=== PATIENT | female | born 1935 | race Caucasian/White ===

== ENCOUNTER 2022-08-02 15:26 | Inpatient (IN) | payer MEDICARE, OTHER ==
[~2022-08-02] VITALS: Ht 142.2 cm; Wt 57.2 kg
[2022-08-02] MEDS ORDERED: BISA10SU11 RC (15:46)
[2022-08-02] MEDS ORDERED: OLME1TAB92 PO (15:46)
[2022-08-02] MEDS ORDERED: ATOR40TA PO (15:46)
[2022-08-02] MEDS ORDERED: SERT50TA PO (15:46)
[2022-08-02] MEDS ORDERED: PREG50CA PO (15:46)
[2022-08-02] MEDS ORDERED: NA P133E RC (15:46)
[2022-08-02] MEDS ORDERED: CYCL30DR EACHEYE (15:46)
[2022-08-02] MEDS ORDERED: ACET-868 PO (15:46)
[2022-08-02] MEDS ORDERED: OMEP20CA15 PO (15:46)
[2022-08-02] MEDS ORDERED: PIOG15TA8 PO (15:46)
[2022-08-02] MEDS ORDERED: METF-440 PO (15:46)
[2022-08-02] MEDS ORDERED: DOCU-141 PO (15:46)
[2022-08-02] MEDS ORDERED: AMLO-213 PO (15:46)
[2022-08-02] MEDS ORDERED: TAMS-12 PO (15:46)
[2022-08-02] MEDS ORDERED: MAGN400O6 PO (15:46)
[2022-08-02] MEDS ORDERED: QUET25TA PO (15:46)
[2022-08-02 16:40] LABS: BASOPHILS % (AUTO) 0.4 % (0.0-2.0); EOSINOPHILS % (AUTO) 2.1 % (0.0-6.0); HEMATOCRIT 35 % (33-45); HEMOGLOBIN 11.1 g/dL (11.5-14.8); LYMPHOCYTES # (AUTO) 1.8 K/uL (0.8-4.8); LYMPHOCYTES % (AUTO) 22.1 % (20.0-44.0); MEAN CORPUSCULAR HGB CONC 32 g/dl (31.0-36.0); MEAN CORPUSCULAR VOLUME 89 fL (82-100); MONOCYTES # (AUTO) 0.7 K/uL (0.1-1.30); MONOCYTES % (AUTO) 8.6 % (2.0-12.0); NEUTROPHILS # (AUTO) 5.5 K/uL (1.8-8.9); NEUTROPHILS % (AUTO) 66.8 % (43.0-81.0); PLATELET COUNT (AUTO) 311 K/uL (150-450); RED BLOOD CELL COUNT(AUTO) 3.91 MIL/uL (4.0-5.2); WHITE BLOOD COUNT (AUTO) 8.2 K/uL (4.3-11.0)
[2022-08-02 17:05] LABS: ALANINE AMINOTRANSFERASE 20 U/L (12-78); ALBUMIN 3.2 g/dL (3.4-5.0); ALKALINE PHOSPHATASE 88 U/L (46-116); ASPARTATE AMINOTRANSFERASE 19 U/L (15-37); BILIRUBIN,DIRECT 0.1 mg/dL (0.0-0.2); BILIRUBIN,TOTAL 0.2 mg/dL (0.2-1.0); CALCIUM, SERUM 8.9 mg/dL (8.5-10.1); CARBON DIOXIDE 27 mmol/L (21-32); CHLORIDE 106 mmol/L (98-107); CREATININE 0.9 mg/dL (0.6-1.3); GLUCOSE 134 mg/dL (74-106); POTASSIUM 3.7 mmol/L (3.5-5.1); SODIUM SERUM 140 mmol/L (136-145); TOTAL PROTEIN, SERUM 6.4 g/dL (6.4-8.2); UREA NITROGEN, BLOOD 17 mg/dL (7-18)
[2022-08-02 17:08] LABS: BILIRUBIN,URINE NEGATIVE (NEGATIVE); COLOR,URINE YELLOW (YELLOW); LEUKOCYTE ESTERASE ,URINE 1+ (NEGATIVE); NITRITE, URINE NEGATIVE (NEGATIVE); PROTEIN,URINE NEGATIVE (NEGATIVE); UGLUCOSE NEGATIVE (NEGATIVE)
[2022-08-02 17:12] LABS: ACETAMINOPHEN < 10 ug/ml (10-30); ALCOHOL, BLOOD < 3 mg/dL (0-0)
[2022-08-02 17:17] LABS: BACTERIA,URINE 1+ /HPF (None Seen); RBC,URINE 0-2 /HPF (0-2)
[2022-08-02] MEDS ORDERED: CEFTRIAXONE 1GM BAG (ER ONLY) 1 GM/50 ML PIGGYBACK IV ONE (18:00)
--- NOTE | 2022-08-02 18:09 | NUR ---
PAGED SUPERVISOR POWER REACTOR
[2022-08-02] MEDS ORDERED: LORAZEPAM INJ 2 MG/ML VIAL IM ONE (18:30)
[2022-08-02] MEDS ORDERED: HALOPERIDOL LACTATE INJ 5 MG/ML VIAL IM ONE (18:30)
[2022-08-02] MEDS ORDERED: HALOPERIDOL LACTATE INJ 5 MG/ML VIAL ONE (18:31)
[2022-08-02] MEDS ORDERED: LORAZEPAM INJ 2 MG/ML VIAL ONE (18:31)
--- NOTE | 2022-08-02 18:38 | NUR ---
RACHELLE COLLECTED AND SENT
[2022-08-02] MEDS ORDERED: CEFTRIAXONE 1GM BAG (ER ONLY) 50 ML IV ONE (19:33)
[2022-08-02] MEDS ORDERED: hydrALAZINE HCL IV 20 MG VIAL ONE (21:19)
[2022-08-02] MEDS ORDERED: hydrALAZINE HCL IV 20 MG VIAL IV PRN (21:30)
--- NOTE | 2022-08-02 22:00 | NUR ---
REPORT GIVEN TO MARCIA THOMPSON.
[2022-08-02 22:30] VITALS: BP 130/76
--- NOTE | 2022-08-02 22:30 | NUR ---
RN NOTE: ADMITTED AN 87-Y/O, FEMALE, FROM [facility]. ADMITTED ON A 5150 HOLD. PER HOLD, PT ADMITTED DUE TO PT'S REFUSING CARE, AGGRESSIVE AND PARANOID BEHAVIOR. UPON FACE TO FACE EVALUATION, PATIENT IS ALERT AND ORIENTED X1, IN PASHTO/FARSI SPEAKING, PT. IS CONFUSED, ANXIOUS AND DISORGANIZED. SKIN ASSESSMENT DONE. PT UNABLE TO SIGN ADMISSION PAPERWORK DUE TO CONFUSION. PT. REFUSED FLU/PNEUMONIA VACCINE. PT ALSO REFUSED TO COMMENT ABOUT FLU/PNA VACCINATION AND REFUSING TO GET ONE. ALL BELONGINGS WERE SCREENED FOR CONTRABAND. PATIENT'S RIGHTS WERE DISCUSSED AND BOOKLET WAS GIVEN. CONTACTED DR. SIDDIQI AND HOSPITALIST BLAYNE COLE AND INFORMED THEM OF THE ADMISSION. BED IN LOWEST POSITION, LOCKED. SAFETY PRECAUTIONS MAINTAINED. WILL CONTINUE TO MONITOR Q15 MINS FOR MOOD, SAFETY AND BEHAVIOR.
[2022-08-02] MEDS ORDERED: BLOOD SUGAR DIAGNOSTIC 1 EACH STRIP IN ONE (23:00)
[2022-08-02] MEDS ORDERED: clonazePAM 0.5 MG TABLET PO PRN (23:00)
[2022-08-02] MEDS ORDERED: ACETAMINOPHEN 325 MG TABLET PO PRN (23:00)
[2022-08-02] MEDS ORDERED: MAGNESIUM HYDROXIDE 30 ML UDC PO PRN (23:00)
[2022-08-02] MEDS ORDERED: TEMAZEPAM 7.5 MG CAPSULE PO PRN (23:00)
[2022-08-03] MEDS ORDERED: MAGNESIUM HYDROXIDE 30 ML UDC PO PRN (00:30)
[2022-08-03] MEDS ORDERED: BISACODYL SUPP (10 MG) 10 MG/SUPP.RECT SUPP.RECT RC PRN (00:30)
[2022-08-03] MEDS ORDERED: DEXTROSE 50%-WATER 50 ML DISP.SYRIN IV PRN (03:00)
--- NOTE | 2022-08-03 03:37 | NUR ---
RN note: 00:15: Patient was found on the floor in sitting position.Full body assessment done and noted skin abrasion/scratches at the middle part of her back.Patient denies complaint of pain upon assessment .Patient was helped and assisted by staff to get up and ambulated her to sit in zheng chair for further assessment. Patient was noted touching her head and staff asked her if she hit her head on the floor but did not answer the question being asked instead noted her touching the back of her head.Jacey CISNEROS was notified with an order of stat CT of the head and neuro check q2 hours. .Diamond Driller Helper MARCIA Albarran was informed of the incident.Will continue to monitor patient for safety. 03:00:Patient is still awake,denies pain .No s/s of acute distress noted.
--- NOTE | 2022-08-03 07:00 | NUR ---
RN NOTE- PT ALERT CONFUSED, IN BEATRICE CHAIR. FALL RISK. PT REPORTEDLY FELL OVER NOC. CT HEAD UNREMARKABLE. VS STABLE. MONITOR / SAFETY
--- NOTE | 2022-08-03 07:15 | NUR ---
RN NOTE- PT NETO FUNEZ. WANTS TO LEAVE HOSPITAL. IRRITATING OTHER PTS. REDIRECTED. TAKING UP MULTIPLE STAFF MEMBERS. DR TANG TO SEE PT Addendum: 08/03/22 at 1017 by CHRISTIAN SYED RN POSTED ON WRONG PT. USER ERROR
[2022-08-03] MEDS ORDERED: OMEPRAZOLE 20 MG CAPSULE.DR PO SCH (07:30)
[2022-08-03 07:35] LABS: CREATININE 0.7 mg/dL (0.6-1.3)
[2022-08-03] MEDS: BLOOD SUGAR DIAGNOSTIC 1 EACH STRIP IN SCH ×4 (07:36→21:58)
[2022-08-03 07:39] LABS: CHOLESTEROL 157 mg/dL (<200); HDL CHOLESTEROL 52 mg/dL (40-60); LDL 92 mg/dL (0-99); TRIGLYCERIDES 103 mg/dL (30-150)
[2022-08-03] MEDS: METFORMIN 500 MG TABLET PO SCH ×2 (07:48→17:03)
[2022-08-03 08:00] VITALS: BP 145/68
--- NOTE | 2022-08-03 08:00 | NUR ---
RN NOTE- PT IN CHAIR, ALLOWED BS CHECK. BS 220. PT REFUSED SSI.
[2022-08-03] MEDS: AMLODIPINE BESYLATE 10 MG TABLET PO SCH (08:09)
[2022-08-03] MEDS: CEPHALEXIN MONOHYDRATE 500 MG CAPSULE PO SCH ×2 (08:09→21:25)
[2022-08-03] MEDS: PREGABALIN 25 MG CAPSULE PO SCH ×2 (08:09→21:25)
[2022-08-03] MEDS: TAMSULOSIN 0.4 MG CAP.SR.24H PO SCH (08:09)
[2022-08-03] MEDS: PIOGLITAZONE HCL 15 MG TABLET PO SCH (08:09)
--- NOTE | 2022-08-03 10:00 | NUR ---
RN NOTE- PT DISRUPTIVE. DR TANG SAW PT. SHES REFUSING ALL MEDS EXCEPT NARCOTICS AND OPPOSITIONAL TO ALL CARE OR PLAN OF CARE. DR TANG ORDERED PT TO LEAVE SINCE SHE WANTED TO GO. HOLD NO LONGER IN PLACE. PT REFUSED TO SIGN AMA. SECURITY HAD TO BE CALLED AND SHE WAS ESCORTED OFF UNIT BY SECURITY AND STAFF Addendum: 08/03/22 at 1018 by CHRISTIAN SYED RN ABOVE POSTED ON WRONG PT. USER ERROR
[2022-08-03] MEDS: PANTOPRAZOLE 40 MG TABLET.DR PO SCH (10:22)
--- NOTE | 2022-08-03 11:17 | NUR ---
JUAN DANIEL Initial Discharge Note: Patient from [facility] [address] [place] [address] . JUAN DANIEL spoke with Brendan vazquez who stated that elopes from the facility and would need a locked facility. JUAN DANIEL will contact patient's daughter Kailee ([phone]) to discuss treatment/discharge plan. JUAN DANIEL will work with the MD, family, and treatment team to help coordinate appropraite discharge.
--- NOTE | 2022-08-03 11:18 | NUR ---
JUAN ADNIEL Clinical Note: Pt placed on a 5150 hold for GD. Per hold, pt has been aggressive at the facility. Patient from [facility] [address] [place], [place] [address]Yzzre: . JUAN DANIEL spoke with Brendan vazquez who stated that elopes from the facility and would need a locked facility. JUAN DANIEL will contact patient's daughter Kailee ([phone]) to discuss treatment/discharge plan. JUAN DANIEL will work with the MD, family, and treatment team to help coordinate appropraite discharge.
--- NOTE | 2022-08-03 11:18 | NUR ---
Treatment Plan: Pt very confused and unable to sign treatment plan.
[2022-08-03] MEDS: INSULIN REGULAR, HUMAN 100 UNIT/ML 3 ML VIAL SQ PRN ×3 (12:25→21:59)
--- NOTE | 2022-08-03 12:27 | NUR ---
RN NOTE- ATTEMPTED TO DO ACCU CHECK . PT PULLING AWAY. REFUSING. PT RECEIVED METFORMIN THIS AM. WILL MONITOR
--- NOTE | 2022-08-03 15:37 | NUR ---
JUAN DANIEL Family Contact: JUAN DANIEL contacted patient's daughter Kailee ([phone]) and discussed treatment/discharge plan. JUAN DANIEL notified the daughter that [facility] cannot accept back. JUAN DANIEL gave options [facility], [facility], and [facility]. Daughter stated that [facility] would be her option. JUAN DANIEL will send clinicals when pt is stable.
[2022-08-03 16:00] VITALS: BP 110/52
[2022-08-03 20:30] VITALS: BP 135/74
[2022-08-03] MEDS: POLYVINYL ALCOHOL 15 ML BOTTLE EACHEYE SCH (21:24)
[2022-08-03] MEDS: OLANZAPINE 2.5 MG TABLET PO SCH (21:25)
[2022-08-03] MEDS: ATORVASTATIN 40 MG TABLET PO SCH (21:26)
[2022-08-03] MEDS: LOSARTAN POTASSIUM 50 MG TABLET PO SCH (21:26)
[2022-08-03] MEDS: HYDROCHLOROTHIAZIDE 25 MG TABLET PO SCH (21:27)
[2022-08-04] MEDS: BLOOD SUGAR DIAGNOSTIC 1 EACH STRIP IN SCH ×4 (07:30→22:00)
[2022-08-04 08:00] VITALS: BP 109/54
[2022-08-04] MEDS: AMLODIPINE BESYLATE 10 MG TABLET PO SCH (09:00)
[2022-08-04] MEDS: INSULIN REGULAR, HUMAN 100 UNIT/ML 3 ML VIAL SQ PRN ×2 (09:07→13:37)
[2022-08-04] MEDS: TAMSULOSIN 0.4 MG CAP.SR.24H PO SCH (09:18)
[2022-08-04] MEDS: METFORMIN 500 MG TABLET PO SCH ×2 (09:19→18:19)
[2022-08-04] MEDS: PREGABALIN 25 MG CAPSULE PO SCH ×2 (09:20→21:43)
[2022-08-04] MEDS: PANTOPRAZOLE 40 MG TABLET.DR PO SCH (09:21)
[2022-08-04] MEDS: PIOGLITAZONE HCL 15 MG TABLET PO SCH (09:22)
[2022-08-04] MEDS: POLYVINYL ALCOHOL 15 ML BOTTLE EACHEYE SCH ×2 (09:23→21:43)
[2022-08-04] MEDS: CEPHALEXIN MONOHYDRATE 500 MG CAPSULE PO SCH ×2 (09:25→21:43)
[2022-08-04 16:00] VITALS: BP 106/69
--- NOTE | 2022-08-04 19:50 | NUR ---
Patient is stable, she is compliant with meds. No behavior issues observed except she talking to herself.
[2022-08-04 20:29] VITALS: BP 130/80
[2022-08-04] MEDS: LOSARTAN POTASSIUM 50 MG TABLET PO SCH (22:37)
[2022-08-04] MEDS: OLANZAPINE 2.5 MG TABLET PO SCH (22:37)
[2022-08-04] MEDS: ATORVASTATIN 40 MG TABLET PO SCH (22:37)
[2022-08-04] MEDS: HYDROCHLOROTHIAZIDE 25 MG TABLET PO SCH (22:37)
--- NOTE | 2022-08-04 23:06 | NUR ---
Blodd sugar check 117
--- NOTE | 2022-08-05 07:05 | NUR ---
RN OPENING NOTE PATIENT 87 YEARS OLD FEMALE, NON ZAMBIAN SPEAKER, ALERT, SITTING ON A BED AT HER ROOM, TALKING TO HERSELF, SEEMS VERY ACTIVE AND DISORIENTED. WILL CONTINUE TO MONITOR, IMPLEMENT SAFETY PRECAUTIONS.
[2022-08-05] MEDS: BLOOD SUGAR DIAGNOSTIC 1 EACH STRIP IN SCH ×4 (07:46→22:38)
[2022-08-05 08:00] VITALS: BP 124/70
[2022-08-05] MEDS: PANTOPRAZOLE 40 MG TABLET.DR PO SCH (08:20)
[2022-08-05] MEDS: POLYVINYL ALCOHOL 15 ML BOTTLE EACHEYE SCH ×2 (08:20→20:11)
[2022-08-05] MEDS: METFORMIN 500 MG TABLET PO SCH ×2 (08:20→18:16)
[2022-08-05] MEDS: AMLODIPINE BESYLATE 10 MG TABLET PO SCH (09:00)
[2022-08-05] MEDS: PREGABALIN 25 MG CAPSULE PO SCH ×2 (09:34→20:09)
[2022-08-05] MEDS: CEPHALEXIN MONOHYDRATE 500 MG CAPSULE PO SCH ×2 (09:35→20:10)
[2022-08-05] MEDS: PIOGLITAZONE HCL 15 MG TABLET PO SCH (09:35)
[2022-08-05] MEDS: TAMSULOSIN 0.4 MG CAP.SR.24H PO SCH (09:35)
[2022-08-05 10:00] VITALS: BP 124/70
--- NOTE | 2022-08-05 10:15 | NUR ---
AFTER PATIENT HAD MORNING PO MEDS, FIND PILLS SPITTED ON THE FLOOR 20 MIN LATER.
--- NOTE | 2022-08-05 10:38 | NUR ---
SNF Referral: JUAN DANIEL sent clinicals to Claudio vazquez from [facility] ([phone]) for placement. JUAN DANIEL sent H & P, progress notes, and medication list.
--- NOTE | 2022-08-05 12:30 | NUR ---
ATTEMPTED TO DO ACCU CHECK . PT PULLING AWAY, KICKING BS MONITOR, REFUSING. WILL MONITOR.
--- NOTE | 2022-08-05 15:40 | NUR ---
SNF Contact: SW spoke with Claudio vazquez from [facility] ([phone]) who stated pt is accepted.
[2022-08-05 16:00] VITALS: BP 100/63
--- NOTE | 2022-08-05 18:27 | NUR ---
RN CLOSING NOTE PATIENT REFUSED TO GET ACCU CHECK AT 17:30. MEDS BEEN TAKEN CRUSHED IN APPLE SAUCE. OTHERWISE STAYED CALM, HAD FEW FAMILY VISITORS THROUGH THE DAY. PATIENT ALERT, SAFETY MEASURES IMPLEMENTED. WILL ENDORSE TO THE RECORD PRESSMAN NURSE FOR SILVIA.
[2022-08-05] MEDS: MAG HYDROX/AL HYDROX/SIMETH 30 ML UDC PO PRN (19:38)
--- NOTE | 2022-08-05 19:39 | NUR ---
RN NOTES: upon endorsement noticed she is spitting her saliva mixed with food particles, she has lots of visitors coming around to visit her, she verbalized in her language she has pain, while pointing in her stomach, prn Maalox given.
--- NOTE | 2022-08-05 19:54 | NUR ---
RN NOTES: SHE IS STILL SPITTING HER SALIVA WITH FOOD PARTICLES, SLIGHTLY RELIEVED WITH THE HELP OF MAALOX, KEPT ON CLOSE WATCH.
--- NOTE | 2022-08-05 19:58 | NUR ---
RN NOTES: RN NOTICED SHE IS PUTTING HER FINGER INSIDE HER MOUTH AND TRYING TO INDUCE HER THROAT TO SPIT OUT HER SALIVA. RN INSTRUCT HER NOT TO DO IT, SHE AGREE, KEPT ON CLOSE WATCH.
[2022-08-05 20:00] VITALS: BP 104/64
--- NOTE | 2022-08-05 20:19 | NUR ---
RN NOTES: UNABLE TO SCAN HIS ANTIBIOTIC MEDS, MANUALLY ENTERED BAR CODE.
--- NOTE | 2022-08-05 20:30 | NUR ---
RN NOTES: SHE TOOK HER ANTIBIOTIC AND LYRICA, NO RESISTANCE, MED COMPLIANT
[2022-08-05] MEDS: LOSARTAN POTASSIUM 50 MG TABLET PO SCH (21:41)
[2022-08-05] MEDS: HYDROCHLOROTHIAZIDE 25 MG TABLET PO SCH (21:42)
[2022-08-05] MEDS: OLANZAPINE 2.5 MG TABLET PO SCH (21:43)
[2022-08-05] MEDS: ATORVASTATIN 40 MG TABLET PO SCH (21:43)
[2022-08-05 22:00] VITALS: BP 104/64
--- NOTE | 2022-08-05 22:12 | NUR ---
RN NOTES: SHE EAT EGG SANDWICH AND DRINK JUICE, AFTER SHE EAT SHE IS SPITTING SOME OF THE FOOD.
--- NOTE | 2022-08-05 22:13 | NUR ---
RN NOTES: REFUSED FOR BLOOD SUGAR CHECK NOW, WILL TRY AGAIN LATER, SHE EAT THE PUDDING.
--- NOTE | 2022-08-05 22:39 | NUR ---
RN NOTES: AGREE FOR BLOOD SUGAR CHECK-128, NO INSULIN PER SCALE, RN SAW HER AGAIN PURGING HIMSELF TO VOMIT, SHE IS PUTTING HER MIDDLE FINGER IN HER THROAT, CN MADE AWARE, WILL MONITOR AND REPORT THIS BEHAVIOR IN THE MORNING.
--- NOTE | 2022-08-05 23:30 | NUR ---
RN NOTES: AROUND 2300 ASSISTED BACK TO BED BY 2 MANUFACTURING BAKER, SHE FALL ASLEEP. SAFETY PRECAUTION OBSERVED.
[2022-08-06] MEDS: BLOOD SUGAR DIAGNOSTIC 1 EACH STRIP IN SCH ×4 (07:40→22:30)
[2022-08-06 08:00] VITALS: BP 118/66
[2022-08-06] MEDS: METFORMIN 500 MG TABLET PO SCH ×2 (08:02→17:32)
[2022-08-06] MEDS: PANTOPRAZOLE 40 MG TABLET.DR PO SCH (08:02)
[2022-08-06] MEDS: TAMSULOSIN 0.4 MG CAP.SR.24H PO SCH (08:33)
[2022-08-06] MEDS: AMLODIPINE BESYLATE 10 MG TABLET PO SCH (08:33)
[2022-08-06] MEDS: PIOGLITAZONE HCL 15 MG TABLET PO SCH (08:33)
[2022-08-06] MEDS: PREGABALIN 25 MG CAPSULE PO SCH ×2 (08:33→22:00)
[2022-08-06] MEDS: CEPHALEXIN MONOHYDRATE 500 MG CAPSULE PO SCH ×2 (08:37→22:00)
[2022-08-06] MEDS: POLYVINYL ALCOHOL 15 ML BOTTLE EACHEYE SCH ×2 (09:52→22:11)
--- NOTE | 2022-08-06 10:28 | NUR ---
Court Notification: JUAN DANIEL contacted pt's daughter Kailee ([phone]) and left a voicemail of [phone] hearing.
--- NOTE | 2022-08-06 10:29 | NUR ---
Court Hearing: Patient's court hearing for 9960 was today and it was upheld for GD.
[2022-08-06 16:00] VITALS: BP 112/73
--- NOTE | 2022-08-06 18:31 | NUR ---
RN-NOTES PATIENT VISIBLE IN THE UNIT ATTENDED GROUPS ,A/OX1, NO ACUTE DISTRESS NOTED. COMPLIANT WITH MEDICATIONS.PATIENT HAD A SHOWER THIS SHIFT.AMBULATORY WITH ONE STAFF ASSIST.NEEDS MODERATE ASSIST WITH ADL'S. ALL NEEDS ATTENDED AND ANTICIPATED. WILL CONT.MONITORING FOR SAFETY AND BEHAVIOR.WILL ENDORSE TO INCOMING NURSE FOR THE CONTINUITY OF CARE.
[2022-08-06 20:00] VITALS: BP 110/68
[2022-08-06] MEDS: OLANZAPINE 2.5 MG TABLET PO SCH (22:01)
[2022-08-06] MEDS: HYDROCHLOROTHIAZIDE 25 MG TABLET PO SCH (22:02)
[2022-08-06] MEDS: LOSARTAN POTASSIUM 50 MG TABLET PO SCH (22:03)
[2022-08-06] MEDS: ATORVASTATIN 40 MG TABLET PO SCH (22:03)
[2022-08-06] MEDS: INSULIN REGULAR, HUMAN 100 UNIT/ML 3 ML VIAL SQ PRN (22:31)
--- NOTE | 2022-08-06 23:00 | NUR ---
[facility] PHYSICIAN NOTES: BS 139. PATIENT REFUSED 2 UNITS OF INSULIN ORDERED. OFFERED X3. EXPLAINED THE RISKS AND BENEFITS. PATIENT STILL REFUSED.
--- NOTE | 2022-08-07 07:04 | NUR ---
ENAMEL MACHINE OPERATOR NOTES: PATIENT AWAKE, SITTING IN CHAIR IN HALLWAY. AMBULATORY. NO ACUTE DISTRESS NOTED. ALL NEEDS ANTICIPATED AND ATTENDED. MONITORED FOR SAFETY AND BEHAVIOR.
[2022-08-07] MEDS: BLOOD SUGAR DIAGNOSTIC 1 EACH STRIP IN SCH ×4 (07:36→22:37)
[2022-08-07] MEDS: PANTOPRAZOLE 40 MG TABLET.DR PO SCH (07:40)
[2022-08-07] MEDS: METFORMIN 500 MG TABLET PO SCH ×2 (07:40→17:09)
[2022-08-07 08:00] VITALS: BP 118/66
[2022-08-07] MEDS: AMLODIPINE BESYLATE 10 MG TABLET PO SCH (08:59)
[2022-08-07] MEDS: TAMSULOSIN 0.4 MG CAP.SR.24H PO SCH ×2 (08:59→09:00)
[2022-08-07] MEDS: CEPHALEXIN MONOHYDRATE 500 MG CAPSULE PO SCH ×2 (08:59→21:40)
[2022-08-07] MEDS: PREGABALIN 25 MG CAPSULE PO SCH ×2 (08:59→21:39)
[2022-08-07] MEDS: POLYVINYL ALCOHOL 15 ML BOTTLE EACHEYE SCH ×2 (08:59→21:39)
[2022-08-07] MEDS: PIOGLITAZONE HCL 15 MG TABLET PO SCH (08:59)
[2022-08-07 16:00] VITALS: BP 108/52
[2022-08-07] MEDS ORDERED: ONDANSETRON HCL 4 MG/5 ML SOLUTION PO PRN (16:30)
[2022-08-07] MEDS: INSULIN REGULAR, HUMAN 100 UNIT/ML 3 ML VIAL SQ PRN ×3 (17:20→22:50)
[2022-08-07] MEDS ORDERED: ONDANSETRON 4 MG TAB.RAPDIS PO PRN (17:30)
--- NOTE | 2022-08-07 18:57 | NUR ---
RN NOTE Patient in bed, resting. Patient is alert and ambulatory, able to make needs known. Stable on room air. No SOB or s/s of distress noted. Patient kept going back and forth to his room and dining area. Patient had a vomiting episode x 1 this morning after breakfast, no other vomiting after that. BLAYNE Thompson ordered zofran PRN. No Zofran given during AM shift. Cooperative and med compliant. Will endorse to fast food shift supervisor nurse for SILVIA.
[2022-08-07 20:00] VITALS: BP 127/58
[2022-08-07] MEDS: HYDROCHLOROTHIAZIDE 25 MG TABLET PO SCH (21:38)
[2022-08-07] MEDS: ATORVASTATIN 40 MG TABLET PO SCH (21:39)
[2022-08-07] MEDS: OLANZAPINE 2.5 MG TABLET PO SCH (21:39)
[2022-08-07] MEDS: LOSARTAN POTASSIUM 50 MG TABLET PO SCH (21:39)
--- NOTE | 2022-08-07 22:35 | NUR ---
RN NOTE BS 163. PT REFUSED INSULIN COVERAGE OF 3 UNITS. EXPLAINED RISK/BENEFITS BUT STILL REFUSED.
--- NOTE | 2022-08-08 06:39 | NUR ---
RN NOTE PT AGITATED AT START OF SHIFT. SAT IN GERICHAIR. CALMED DOWN AFTER BEING PROVIDED WITH SNACKS AND MEDICATIONS. SLEEPING IN BED AT THIS TIME. ABLE TO MAKE NEEDS KNOWN. STABLE ON RA. NO SOB OR S/S OF DISTRESS NOTED. PACING IN HER ROOM. COMPLIANT WITH MEDS WHEN CRUSHED AND WITH APPLE SAUCE. REFUSED INSULIN COVERAGE. WILL ENDORSE SILVIA TO DAY SHIFT NURSE.
--- NOTE | 2022-08-08 07:50 | NUR ---
RN NOTE Patient awake in bed, a/ox1, with episode of confusion. alert and ambulatory, able to make needs known. Stable on room air. No SOB or s/s of distress noted. All safety precautions implemented. Will continue to monitor.
[2022-08-08] MEDS: BLOOD SUGAR DIAGNOSTIC 1 EACH STRIP IN SCH ×4 (07:56→22:15)
[2022-08-08] MEDS: INSULIN REGULAR, HUMAN 100 UNIT/ML 3 ML VIAL SQ PRN ×2 (07:57→11:30)
[2022-08-08 08:00] VITALS: BP 106/56
[2022-08-08] MEDS: PANTOPRAZOLE 40 MG TABLET.DR PO SCH (08:29)
[2022-08-08] MEDS: POLYVINYL ALCOHOL 15 ML BOTTLE EACHEYE SCH ×2 (08:29→20:47)
[2022-08-08] MEDS: METFORMIN 500 MG TABLET PO SCH ×2 (08:29→17:03)
[2022-08-08] MEDS: PIOGLITAZONE HCL 15 MG TABLET PO SCH (08:30)
[2022-08-08] MEDS: CEPHALEXIN MONOHYDRATE 500 MG CAPSULE PO SCH ×2 (08:30→20:40)
[2022-08-08] MEDS: PREGABALIN 25 MG CAPSULE PO SCH ×2 (08:30→20:40)
[2022-08-08] MEDS: TAMSULOSIN 0.4 MG CAP.SR.24H PO SCH (08:30)
[2022-08-08] MEDS: AMLODIPINE BESYLATE 10 MG TABLET PO SCH (08:31)
--- NOTE | 2022-08-08 12:30 | NUR ---
GPS RN NOTES PATIENT BS WAS 83, OFFERED ORANGE JUICE. TO RECHECKED AGAIN AFTER AN HOUR, HOWEVER PATIENT WAS SLEEPING IN BED. PATIENT HAD HER LUNCH BEFORE PATIENT WAS SEEN SLEEPING. TO MONITOR.
[2022-08-08 16:00] VITALS: BP 123/59
--- NOTE | 2022-08-08 18:45 | NUR ---
RN NOTES Patient in bed, resting. Patient is alert and ambulatory, able to make needs known. Stable on room air. No SOB or s/s of distress noted. Cooperative and med compliant. Patient was visited by Son in the evening and patient was seen crying and very emotional, kept patient comfortable. Will endorse to assistant casino shift manager nurse for SILVIA.
--- NOTE | 2022-08-08 20:00 | NUR ---
TOWER EXCAVATOR OPERATOR NOTE Patient awake in bed, a/ox1, confused, disorganized, able to make needs known. No SOB or s/s of distress noted. All safety precautions implemented. Will continue to monitor.
[2022-08-08 20:24] VITALS: BP 113/72
[2022-08-08] MEDS: ATORVASTATIN 40 MG TABLET PO SCH (21:50)
[2022-08-08] MEDS: HYDROCHLOROTHIAZIDE 25 MG TABLET PO SCH (21:51)
[2022-08-08] MEDS: OLANZAPINE 2.5 MG TABLET PO SCH (21:51)
[2022-08-08] MEDS: LOSARTAN POTASSIUM 50 MG TABLET PO SCH (21:54)
[2022-08-09] MEDS: BLOOD SUGAR DIAGNOSTIC 1 EACH STRIP IN SCH ×4 (07:44→21:38)
[2022-08-09] MEDS: INSULIN REGULAR, HUMAN 100 UNIT/ML 3 ML VIAL SQ PRN (07:45)
[2022-08-09] MEDS: PANTOPRAZOLE 40 MG TABLET.DR PO SCH (07:57)
[2022-08-09] MEDS: METFORMIN 500 MG TABLET PO SCH ×2 (07:57→17:00)
[2022-08-09 08:00] VITALS: BP 116/50
[2022-08-09] MEDS: PREGABALIN 25 MG CAPSULE PO SCH ×2 (08:19→21:31)
[2022-08-09] MEDS: AMLODIPINE BESYLATE 10 MG TABLET PO SCH (08:19)
[2022-08-09] MEDS: CEPHALEXIN MONOHYDRATE 500 MG CAPSULE PO SCH ×2 (08:19→21:35)
[2022-08-09] MEDS: TAMSULOSIN 0.4 MG CAP.SR.24H PO SCH (08:19)
[2022-08-09] MEDS: PIOGLITAZONE HCL 15 MG TABLET PO SCH (08:20)
[2022-08-09] MEDS: POLYVINYL ALCOHOL 15 ML BOTTLE EACHEYE SCH ×2 (08:30→21:41)
--- NOTE | 2022-08-09 10:57 | NUR ---
JUAN DANIEL Family Contact: SW contacted patient's daughter Kailee ([phone]) and she is agreeable of pt going to [facility].
[2022-08-09 16:00] VITALS: BP 105/62
[2022-08-09] MEDS: MAG HYDROX/AL HYDROX/SIMETH 30 ML UDC PO PRN (18:18)
--- NOTE | 2022-08-09 18:18 | NUR ---
pt c/o indigestion medicated with Maalox
--- NOTE | 2022-08-09 19:55 | NUR ---
CONSTIPATION Patient in bed, daughter at bedside. Patient no BM in the last 3 days, daughter Kailee assist with Georgian speaking translation. Given Dulcolax supp to patient as per daughter Kailee request.
[2022-08-09 20:22] VITALS: BP 121/55
[2022-08-09] MEDS: LOSARTAN POTASSIUM 50 MG TABLET PO SCH (21:32)
[2022-08-09] MEDS: ATORVASTATIN 40 MG TABLET PO SCH (21:32)
[2022-08-09] MEDS: HYDROCHLOROTHIAZIDE 25 MG TABLET PO SCH (21:33)
[2022-08-09] MEDS: OLANZAPINE 2.5 MG TABLET PO SCH (21:33)
--- NOTE | 2022-08-10 06:26 | NUR ---
END OF SHIFT NOTES Patient in bed sleeping arouses easily. Hours of sleep 7. Ambulated to the bathroom, continent, reports no BM yet after Dulcolax suppository, denies abdomen pain. Plan for continue inpatient [facility] hospitalization, Behavior management per Psychiatry. Will endorse to oncoming RN.
[2022-08-10] MEDS: BLOOD SUGAR DIAGNOSTIC 1 EACH STRIP IN SCH ×4 (07:56→21:06)
[2022-08-10] MEDS: PANTOPRAZOLE 40 MG TABLET.DR PO SCH (07:57)
[2022-08-10] MEDS: METFORMIN 500 MG TABLET PO SCH ×2 (07:57→17:05)
[2022-08-10 08:00] VITALS: BP 116/58
[2022-08-10] MEDS: PREGABALIN 25 MG CAPSULE PO SCH ×2 (08:15→20:15)
[2022-08-10] MEDS: PIOGLITAZONE HCL 15 MG TABLET PO SCH (08:15)
[2022-08-10] MEDS: AMLODIPINE BESYLATE 10 MG TABLET PO SCH (08:16)
[2022-08-10] MEDS: TAMSULOSIN 0.4 MG CAP.SR.24H PO SCH (08:16)
[2022-08-10] MEDS: CEPHALEXIN MONOHYDRATE 500 MG CAPSULE PO SCH ×2 (08:17→20:16)
[2022-08-10] MEDS: POLYVINYL ALCOHOL 15 ML BOTTLE EACHEYE SCH ×2 (08:18→20:15)
[2022-08-10 16:22] VITALS: BP 104/59
--- NOTE | 2022-08-10 19:30 | NUR ---
RN NOTES RECEIVED PATIENT IN BED AWAKE. A/O TIMES 2. HARD OF HEARING. HEARING AIDS BED SIDE. ABLE TO MAKE NEEDS KNOWN. FRENCH SPEAKER. NO PAIN NOTED. NO SOB NOTED. NO DISTRESS NOTED. COMPLIANT AND FOLLOWING THE INSTRUCTIONS. ALL NEEDS ATTENDED. ALL SAFETY MEASURES IN PLACE. BED LOCKED IN THE LOWEST POSITION. TABLE CLOSE TO THE PATIENT. BED ALARM ON. SIDE RAILS UP TIMES 2. REMINDED THE PATIENT TO ASK FOR ANY HELP , VERBALIZED UNDERSTANDING. WILL CONTINUE TO MONITOR CLOSELY.
[2022-08-10 20:41] VITALS: BP 113/62
[2022-08-10] MEDS: OLANZAPINE 2.5 MG TABLET PO SCH (21:07)
[2022-08-10] MEDS: ATORVASTATIN 40 MG TABLET PO SCH (21:07)
[2022-08-10] MEDS: HYDROCHLOROTHIAZIDE 25 MG TABLET PO SCH (21:07)
[2022-08-10] MEDS: LOSARTAN POTASSIUM 50 MG TABLET PO SCH (21:08)
[2022-08-11] MEDS: BLOOD SUGAR DIAGNOSTIC 1 EACH STRIP IN SCH ×4 (05:58→22:00)
--- NOTE | 2022-08-11 06:39 | NUR ---
RN CLOSING NOTES PATIENT IN BED AWAKE. A/O TIMES 2. HARD OF HEARING. HEARING AIDS BED SIDE. ABLE TO MAKE NEEDS KNOWN. KENYAN SPEAKER. NO PAIN NOTED. NO SOB NOTED. NO DISTRESS NOTED. COMPLIANT AND FOLLOWING THE INSTRUCTIONS. ALL NEEDS ATTENDED. ALL DUE MEDS GIVEN. BLOOD SUGAR FOR 729 WAS 75. ORANGE JUICE GIVEN.ALL SAFETY MEASURES IN PLACE. BED LOCKED IN THE LOWEST POSITION. TABLE CLOSE TO THE PATIENT. BED ALARM ON. SIDE RAILS UP TIMES 2. REMINDED THE PATIENT TO ASK FOR ANY HELP , VERBALIZED UNDERSTANDING. WILL ENDORSE FOR SILVIA.
[2022-08-11 08:00] VITALS: BP 105/54
[2022-08-11] MEDS: PANTOPRAZOLE 40 MG TABLET.DR PO SCH (08:09)
[2022-08-11] MEDS: METFORMIN 500 MG TABLET PO SCH ×2 (08:10→17:09)
[2022-08-11] MEDS: TAMSULOSIN 0.4 MG CAP.SR.24H PO SCH (08:36)
[2022-08-11] MEDS: AMLODIPINE BESYLATE 10 MG TABLET PO SCH (08:38)
[2022-08-11] MEDS: CEPHALEXIN MONOHYDRATE 500 MG CAPSULE PO SCH ×2 (08:39→21:39)
[2022-08-11] MEDS: PREGABALIN 25 MG CAPSULE PO SCH ×2 (08:39→21:37)
[2022-08-11] MEDS: PIOGLITAZONE HCL 15 MG TABLET PO SCH (08:39)
--- NOTE | 2022-08-11 08:40 | NUR ---
RN Notes : RECEIVED PATIENT ASLEEP IN BED, BED LOW TO FLOOR, ALL WHEELS LOCKED ALL SAFETY MEASURES IN PLACE, A & O TIMES 2, EASILY AROUSED, PT IS HARD OF HEARING HAVE TO SPEAK LOUDLY TO HIM THE HEARING AIDS ARE AT BED SIDE. ABLE TO MAKE NEEDS KNOWN. CANADIAN SPEAKER. NO PAIN & NO SOB NOTED AT THIS TIME, NO DISTRESS NOTED. ALL NEEDS ATTENDED TO IN A TIMELY MANNER . ALL DUE MEDS GIVEN - " KEFLEX MED IS NOT SCANNING ON SCANNER AT THIS TIME, MED GIVEN WITH BREAKFAST AND BEVERAGE. WILL ACCESS FOR ANY SIDE EFFECTS NONE NOTED AT THIS TIME, BED ALARM ON. SIDE RAILS UP TIMES 2. REMINDED THE PATIENT TO ASK FOR ANY HELP , VERBALIZED UNDERSTANDING. WILL MONITOR PT CLOSELY & FOR SAFETY .
[2022-08-11] MEDS: POLYVINYL ALCOHOL 15 ML BOTTLE EACHEYE SCH ×2 (08:46→21:32)
[2022-08-11] MEDS: ACETAMINOPHEN 325 MG TABLET PO PRN (14:47)
--- NOTE | 2022-08-11 14:47 | NUR ---
RN NOTES PT C/O MILD PAIN ON SCALE 0-10 AT A LEVEL 3, TYLENOL GIVE PO CRUSHED WITH PUDDING PER ORDER NOTED FOR MILD PAIN RELIEF
[2022-08-11 16:00] VITALS: BP 118/53
--- NOTE | 2022-08-11 18:22 | NUR ---
RN NOTES PT ONLY COMPLIANT WITH MEDICATIONS IF CRUSHED TO A POWDER AND GIVEN IN EITHER PUDDING OR FOOD FOR DINNER OTHERWISE REFUSES TO TAKE PO MEDICATIONS WHOLE DURING AM SHIFT, SLEPT MOST OF DAY SHIFT WOULD AMBULATE ON OWN WITH STEADY GATE AT TIMES AND WOULD MUMBLE TO SELF, IT SOUNDED LIKE SHE SPOKE SOME SURINAMESE SO I SPOKE WHAT LITTLE SURINAMESE I KNEW TO HER AND SHE DID RESPOND IN FLUENT SURINAMESE LANGUAGE, OTHER THAN THAT A BUNCH OF MUMBLING, NO SOB NOTED, NO DISTRESS, TYLENOL EFFECTIVE FOR MINOR ACHES GENERALIZED, ALL NEEDS TENDED TO IN A TIMELY MANNER, NO ADVERSE SIDE EFFECTS NOTED FROM THE ABT GIVEN DURING SHIFT, BED LOW TO FLOOR, ALL WHEELS LOCKED.
--- NOTE | 2022-08-11 19:30 | NUR ---
Pt. verbally endorsed by day shift RN. Pt. received in bed awake to name. Respondsive. initial assessment rendered. Cooperative. Monitored for acute distress and change in overall clinical status.
[2022-08-11 20:00] VITALS: BP 131/71
[2022-08-11 20:27] VITALS: BP 136/71
[2022-08-11] MEDS: OLANZAPINE 2.5 MG TABLET PO SCH (21:37)
[2022-08-11] MEDS: ATORVASTATIN 40 MG TABLET PO SCH (21:37)
[2022-08-11] MEDS: LOSARTAN POTASSIUM 50 MG TABLET PO SCH (21:38)
[2022-08-11] MEDS: HYDROCHLOROTHIAZIDE 25 MG TABLET PO SCH (21:38)
--- NOTE | 2022-08-11 22:00 | NUR ---
Pt. was agreeable to taking meds this evening. FBS at 87 mg/dl. Vanilla pudding taken and applesauce. Pt. has obvious language deficit but understands she needs supplements for her glucose levels. Patting her stomach . Monitored for acute distress.
[2022-08-12 08:00] VITALS: BP 139/66
[2022-08-12] MEDS: CEPHALEXIN MONOHYDRATE 500 MG CAPSULE PO SCH ×2 (09:00→20:39)
--- NOTE | 2022-08-12 09:00 | NUR ---
GPS RN OPENING NOTE (DAYSHIFT) RECEIVED PATIENT ASLEEP IN BED, BED LOW TO FLOOR, ALL WHEELS LOCKED ALL SAFETY MEASURES IN PLACE, A & O TIMES 2, EASILY AROUSED, PT IS HARD OF HEARING HAVE TO SPEAK LOUDLY TO HIM THE HEARING AIDS ARE AT BED SIDE. ABLE TO MAKE NEEDS KNOWN. PARAGUAYAN SPEAKER. NO PAIN & NO SOB NOTED AT THIS TIME, NO DISTRESS NOTED. ALL NEEDS ATTENDED TO IN A TIMELY MANNER . ALL DUE MEDS GIVEN - " KEFLEX MED IS NOT SCANNING ON SCANNER AT THIS TIME, MED GIVEN WITH BREAKFAST AND BEVERAGE. WILL ACCESS FOR ANY SIDE EFFECTS NONE NOTED AT THIS TIME, BED ALARM ON. SIDE RAILS UP TIMES 2. REMINDED THE PATIENT TO ASK FOR ANY HELP , VERBALIZED UNDERSTANDING. WILL MONITOR PT CLOSELY & FOR SAFETY .
[2022-08-12] MEDS: BLOOD SUGAR DIAGNOSTIC 1 EACH STRIP IN SCH ×4 (10:40→22:30)
[2022-08-12] MEDS: TAMSULOSIN 0.4 MG CAP.SR.24H PO SCH (10:48)
[2022-08-12] MEDS: METFORMIN 500 MG TABLET PO SCH ×2 (10:48→18:21)
[2022-08-12] MEDS: PANTOPRAZOLE 40 MG TABLET.DR PO SCH (10:48)
[2022-08-12] MEDS: PIOGLITAZONE HCL 15 MG TABLET PO SCH (10:48)
[2022-08-12] MEDS: AMLODIPINE BESYLATE 10 MG TABLET PO SCH (10:50)
[2022-08-12] MEDS: PREGABALIN 25 MG CAPSULE PO SCH ×2 (10:50→20:37)
[2022-08-12] MEDS: DOCUSATE SODIUM 100 MG CAPSULE PO PRN ×2 (10:51→20:38)
[2022-08-12] MEDS: POLYVINYL ALCOHOL 15 ML BOTTLE EACHEYE SCH ×2 (10:52→20:46)
[2022-08-12 16:00] VITALS: BP 103/54
[2022-08-12 20:00] VITALS: BP 115/58
--- NOTE | 2022-08-12 20:20 | NUR ---
GPS RN OPENING NOTE RECEIVED PATIENT AWAKE IN BED, OCCASIONALLY WALKING INDEPENDENTLY; ALERT AND ORIENTED X 1, CONFUSED, CITIZEN OF [place] SPEAKING; STABLE ON ROOM AIR, BREATHING EVENLY AND NO RESPIRATORY DISTRESS NOTED; NO COMPLAINTS OF PAIN AND DISCOMFORT AT THIS TIME; SAFETY MEASURES IMPLEMENTED, BED IN LOW AND LOCKED POSITION, SIDE RAILS UP X 2, CALL LIGHT WITHIN REACH; WILL CONTINUE TO MONITOR EVERY 15 MINS WITH THE HELP OF STAFF TO MAINTAIN SAFETY
[2022-08-12] MEDS: OLANZAPINE 2.5 MG TABLET PO SCH (21:49)
[2022-08-12] MEDS: ATORVASTATIN 40 MG TABLET PO SCH (21:49)
[2022-08-12] MEDS: LOSARTAN POTASSIUM 50 MG TABLET PO SCH (21:50)
[2022-08-12] MEDS: HYDROCHLOROTHIAZIDE 25 MG TABLET PO SCH (21:50)
--- NOTE | 2022-08-12 23:30 | NUR ---
GPS RN NOTE PATIENT AGREED AND WAS ABLE TO TAKE ALL ORAL MEDICATIONS. ACCUCHECK WAS DONE AND FBS WAS 107. PATIENT WAS NOTED TO BE CONFUSED AND SAYING INCOMPREHENSIBLE WORDS BUT CAN UNDERSTAND THAT SHE NEEDS TO TAKE HER MEDICATIONS AND HAVE HER BLOOD SUGAR CHECKED. PATIENT IS NOW COMFORTABLY SLEEPING IN BED; WILL CONTINUE TO MONITOR THROUGHOUT SHIFT
--- NOTE | 2022-08-13 06:17 | NUR ---
GPS RN NOTE PATIENT WAS ABLE TO SLEEP COMFORTABLY DURING THE NIGHT, WOKE UP FEW TIMES BUT IS ABLE TO GO BACK TO SLEEP WITHOUT ANY PROBLEMS; NO DISTRESS OR COMPLAINTS OF PAIN AND DISCOMFORT AT THIS TIME; MEDICALLY STABLE; WILL ENDORSE TO AM NURSE FOR SILVIA.
[2022-08-13 07:14] LABS: CALCIUM, SERUM 8.9 mg/dL (8.5-10.1); CREATININE 0.7 mg/dL (0.6-1.3); POTASSIUM 3.2 mmol/L (3.5-5.1)
[2022-08-13] MEDS: PANTOPRAZOLE 40 MG TABLET.DR PO SCH (07:45)
[2022-08-13] MEDS: BLOOD SUGAR DIAGNOSTIC 1 EACH STRIP IN SCH ×4 (07:54→21:02)
[2022-08-13] MEDS: METFORMIN 500 MG TABLET PO SCH ×2 (07:55→17:06)
[2022-08-13 08:00] VITALS: BP 117/59
[2022-08-13] MEDS: TAMSULOSIN 0.4 MG CAP.SR.24H PO SCH (08:46)
[2022-08-13] MEDS: CEPHALEXIN MONOHYDRATE 500 MG CAPSULE PO SCH ×2 (08:46→20:53)
[2022-08-13] MEDS: PREGABALIN 25 MG CAPSULE PO SCH ×2 (08:46→20:52)
[2022-08-13] MEDS: AMLODIPINE BESYLATE 10 MG TABLET PO SCH (08:47)
[2022-08-13] MEDS: PIOGLITAZONE HCL 15 MG TABLET PO SCH (08:47)
[2022-08-13] MEDS: POLYVINYL ALCOHOL 15 ML BOTTLE EACHEYE SCH ×2 (08:49→20:54)
[2022-08-13] MEDS ORDERED: POTASSIUM CHLORIDE 10 MEQ TABLET.SA PO ONE (09:00)
[2022-08-13 16:00] VITALS: BP 108/58
--- NOTE | 2022-08-13 18:07 | NUR ---
GPS RN CLOSING NOTE PATIENT AWAKE IN BED, ALERT AND ORIENTED X 1, CONFUSED, COOPERATIVE, STABLE ON ROOM AIR, BREATHING EVENLY AND NO RESPIRATORY DISTRESS NOTED; NO COMPLAINTS OF PAIN AND DISCOMFORT AT THIS TIME. PATIENT COMPLIANT WITH ALL MEDS GIVEN. ALL NEEDS MET, ALL DUE MEDS GIVEN. SAFETY MEASURES MAINTAINED:BED IN LOWEST AND LOCKED POSITION, SIDE RAILS UP X 2, CALL LIGHT WITHIN REACH. WILL ENDORSE TO PRINCIPAL PRODUCT MANAGER NURSE.
[2022-08-13 20:40] VITALS: BP 112/66
[2022-08-13] MEDS: HYDROCHLOROTHIAZIDE 25 MG TABLET PO SCH (21:05)
[2022-08-13] MEDS: OLANZAPINE 2.5 MG TABLET PO SCH (21:05)
[2022-08-13] MEDS: ATORVASTATIN 40 MG TABLET PO SCH (21:06)
[2022-08-13] MEDS: LOSARTAN POTASSIUM 50 MG TABLET PO SCH (21:13)
--- NOTE | 2022-08-13 21:15 | NUR ---
Rn notes Pt's blood sugar HS 77. No S/s of hypoglycemic. Snacks is given and provided with apple juice. Pt ate well. Will continue to monitor.
--- NOTE | 2022-08-14 | NUR ---
RN notes Pt is awake. Offered Pt snacks and apple juice. Pt ate without any difficulties.
[2022-08-14] MEDS: BLOOD SUGAR DIAGNOSTIC 1 EACH STRIP IN SCH ×4 (07:54→21:00)
[2022-08-14 08:00] VITALS: BP 108/68
[2022-08-14] MEDS: TAMSULOSIN 0.4 MG CAP.SR.24H PO SCH (08:40)
[2022-08-14] MEDS: PREGABALIN 25 MG CAPSULE PO SCH ×2 (08:40→21:07)
[2022-08-14] MEDS: CEPHALEXIN MONOHYDRATE 500 MG CAPSULE PO SCH ×2 (08:40→21:08)
[2022-08-14] MEDS: PANTOPRAZOLE 40 MG TABLET.DR PO SCH (08:40)
[2022-08-14] MEDS: PIOGLITAZONE HCL 15 MG TABLET PO SCH (08:40)
[2022-08-14] MEDS: METFORMIN 500 MG TABLET PO SCH ×2 (08:40→17:04)
[2022-08-14] MEDS: AMLODIPINE BESYLATE 10 MG TABLET PO SCH (08:41)
[2022-08-14] MEDS: POLYVINYL ALCOHOL 15 ML BOTTLE EACHEYE SCH ×2 (08:43→20:58)
[2022-08-14 16:00] VITALS: BP 113/50
--- NOTE | 2022-08-14 17:36 | NUR ---
RN-NOTES PATIENT VISIBLE IN THE UNIT,A/O X2 CALM,COOPERATIVE WITH STAFF,NO ACUTE DISTRESS NOTED. COMPLIANT WITH MEDICATIONS.PATIENT AMBULATORY WITH WALKER. ALL NEEDS ATTENDED AND ANTICIPATED. WILL CONT. MONITORING FOR SAFETY AND BEHAVIOR.WILL ENDORSE TO INCOMING NURSE FOR THE CONTINUITY OF CARE.
[2022-08-14] MEDS: ACETAMINOPHEN 325 MG TABLET PO PRN (20:34)
--- NOTE | 2022-08-14 20:39 | NUR ---
RN notes Pt is complaining of headache and requesting med. administered tylenol 650 mg/po/prn as ordered for headache. safety precautions is maintained. will continue to monitor.
[2022-08-14] MEDS: OLANZAPINE 10 MG TABLET PO SCH (21:07)
[2022-08-14] MEDS: ATORVASTATIN 40 MG TABLET PO SCH (21:07)
[2022-08-14] MEDS: LOSARTAN POTASSIUM 50 MG TABLET PO SCH (21:08)
[2022-08-14] MEDS: HYDROCHLOROTHIAZIDE 25 MG TABLET PO SCH (21:08)
[2022-08-14 21:09] VITALS: BP 115/71
[2022-08-15 08:00] VITALS: BP 110/43
[2022-08-15] MEDS: BLOOD SUGAR DIAGNOSTIC 1 EACH STRIP IN SCH ×4 (08:05→22:00)
[2022-08-15] MEDS: TAMSULOSIN 0.4 MG CAP.SR.24H PO SCH (08:13)
[2022-08-15] MEDS: CEPHALEXIN MONOHYDRATE 500 MG CAPSULE PO SCH ×2 (08:13→21:34)
[2022-08-15] MEDS: PREGABALIN 25 MG CAPSULE PO SCH ×2 (08:13→21:32)
[2022-08-15] MEDS: METFORMIN 500 MG TABLET PO SCH ×2 (08:13→17:01)
[2022-08-15] MEDS: PANTOPRAZOLE 40 MG TABLET.DR PO SCH (08:13)
[2022-08-15] MEDS: PIOGLITAZONE HCL 15 MG TABLET PO SCH (08:13)
[2022-08-15] MEDS: AMLODIPINE BESYLATE 10 MG TABLET PO SCH (08:14)
[2022-08-15] MEDS: POLYVINYL ALCOHOL 15 ML BOTTLE EACHEYE SCH ×2 (09:42→21:31)
[2022-08-15 16:00] VITALS: BP 121/62
--- NOTE | 2022-08-15 17:01 | NUR ---
RN- NOTES BLOOD GLUCOSE NOTED AT 84.
--- NOTE | 2022-08-15 18:30 | NUR ---
RN- CLOSING NOTES PATIENT AWAKE, SITTING ON THE SIDE OF THE BED. A/O X2. PT. IS GUARDED, ANXIOUS, AND ISOLATIVE. PATIENT IS MEDICATION COMPLIANT. AMBULATORY WITH NO ASSISTANCE AND DENIES SI/HI AT THIS TIME. WILL CONTINUE TO MONITOR Q 15 MINUTES FOR SAFETY AND BEHAVIOR.
[2022-08-15 20:27] VITALS: BP 120/55
[2022-08-15] MEDS: OLANZAPINE 10 MG TABLET PO SCH (21:32)
[2022-08-15] MEDS: ATORVASTATIN 40 MG TABLET PO SCH (21:32)
[2022-08-15] MEDS: HYDROCHLOROTHIAZIDE 25 MG TABLET PO SCH (21:33)
[2022-08-15] MEDS: LOSARTAN POTASSIUM 50 MG TABLET PO SCH (21:34)
--- NOTE | 2022-08-15 22:00 | NUR ---
Nurses notes: Pt refuses BS ck, offer to pts 3x but still declined.
[2022-08-16 06:57] LABS: BASOPHILS % (AUTO) 0.4 % (0.0-2.0); EOSINOPHILS % (AUTO) 3.5 % (0.0-6.0); HEMATOCRIT 32 % (33-45); HEMOGLOBIN 10.2 g/dL (11.5-14.8); LYMPHOCYTES # (AUTO) 2.1 K/uL (0.8-4.8); LYMPHOCYTES % (AUTO) 28.5 % (20.0-44.0); MEAN CORPUSCULAR HGB CONC 32 g/dl (31.0-36.0); MEAN CORPUSCULAR VOLUME 88 fL (82-100); MONOCYTES # (AUTO) 0.8 K/uL (0.1-1.30); MONOCYTES % (AUTO) 10.6 % (2.0-12.0); NEUTROPHILS # (AUTO) 4.2 K/uL (1.8-8.9); PLATELET COUNT (AUTO) 242 K/uL (150-450); RED BLOOD CELL COUNT(AUTO) 3.61 MIL/uL (4.0-5.2); WHITE BLOOD COUNT (AUTO) 7.4 K/uL (4.3-11.0)
--- NOTE | 2022-08-16 07:15 | NUR ---
GPS RN OPENING NOTES: RECEIVED PATIENT IN BED ASLEEP BUT EASILY AROUSES TO VOICE. NO RESPIRATORY DISTRESS NOTED, BREATHING EVEN AND UNLABORED. PATIENT IS ALERT, ORIENTED X 1. PATIENT IS GUARDED, ANXIOUS, ISOLATIVE, ALL SAFETY MEASURES IN PLACE. BED LOCKED AND IN LOWEST POSITION. WILL CONTINUE TO MONITOR PATIENT Q 15 MINUTES FOR SAFETY.
[2022-08-16 07:18] LABS: CALCIUM, SERUM 8.4 mg/dL (8.5-10.1); CREATININE 0.7 mg/dL (0.6-1.3); MAGNESIUM 1.9 mg/dL (1.8-2.4); PHOSPHORUS 3.3 mg/dL (2.5-4.9); POTASSIUM 3.6 mmol/L (3.5-5.1)
[2022-08-16] MEDS: BLOOD SUGAR DIAGNOSTIC 1 EACH STRIP IN SCH ×2 (07:54→12:16)
[2022-08-16] MEDS: PANTOPRAZOLE 40 MG TABLET.DR PO SCH (07:54)
[2022-08-16 08:00] VITALS: BP 132/60
--- NOTE | 2022-08-16 08:21 | NUR ---
SW Discharge Note: Patient will be discharged to custodial facility [facility] [address] [place] [address]; ([phone]). Please arrange transportation at 2PM. Development Analyst spoke with Claudio vazquez at [facility] ([phone]) who stated patient will be accepted at facility today. Patients is aware and agreeable. Patient is alert and oriented x1 and is not able to plan for self-care at this time but is willing to accept care provided for her at the facility. Patient denies suicidal or homicidal ideation. Patients daughter Kailee ([phone]) is aware and agreeable of dc. Patient will continue to follow-up with (Psychiatrist) Dr. Cortés [address] [facility] [address], [place] [address]; ([phone]) and Detective [address] Dr. Justin [address] [facility] [address], [place] [address]; ([phone]). Patient presents with euthymic mood and congruent affect.
[2022-08-16] MEDS: METFORMIN 500 MG TABLET PO SCH (08:55)
[2022-08-16] MEDS: CEPHALEXIN MONOHYDRATE 500 MG CAPSULE PO SCH (08:56)
[2022-08-16] MEDS: PREGABALIN 25 MG CAPSULE PO SCH (08:56)
[2022-08-16] MEDS: PIOGLITAZONE HCL 15 MG TABLET PO SCH (08:56)
[2022-08-16] MEDS: POLYVINYL ALCOHOL 15 ML BOTTLE EACHEYE SCH (08:56)
[2022-08-16] MEDS: TAMSULOSIN 0.4 MG CAP.SR.24H PO SCH (08:56)
[2022-08-16 09:00] VITALS: BP 110/43
[2022-08-16] MEDS: AMLODIPINE BESYLATE 10 MG TABLET PO SCH (09:00)
--- NOTE | 2022-08-16 13:02 | NUR ---
REPORT TO NURSE: CALLED [facility] @ [phone], SPOKE WITH DORA BRITTON, CHARGE NURSE AND GAVE FULL REPORT FOR THE PATIENT. INFORMED OF HOME DEMONSTRATOR TIME @ 1300 SUPPOSED TO BE. PATIENT REMAINS STABLE AT THIS TIME
--- NOTE | 2022-08-16 13:08 | NUR ---
[facility] CAME TO DANCING MASTER THE PATIENT ACCOMPANIED BY TWO EMT PERSONNELS. GAVE FULL REPORT TO MARICHUY. DISCHARGE PAPERWORK HANDED TO EMT INCLUDING THE LIST OF HER MEDICATIONS. BELONGING LIST DONE AND PATIENT'S PERSONAL BELONGINGS WERE ALSO HANDED TO THE AMBULANCE PERSONNEL. V/S FOLLOWS: BP 134/66 PULSE 80, RR 16, RA WITH OXYGEN SATURATION OF 95%. PATIENT LEFT IN NO ACUTE DISTRESS AND IN STABLE CONDITION. PATIENT IS CALM AND COOPERATIVE AT THIS TIME.
== END 2022-08-16 13:08 | DRG 885 ==
LOC: ER 15:31 → GPS 20:48
PROVIDERS: ADMIT Nurse Practitioner Psychiatric/Mental Health; ATTEND Nurse Practitioner Family
DX: F39 Unspecified mood [affective] disorder (principal); E44.1 Mild protein-calorie malnutrition; N39.0 Urinary tract infection, site not specified; R45.851 Suicidal ideations; E87.1 Hypo-osmolality and hyponatremia; F29 Unspecified psychosis not due to a substance or known physiological condition; B96.89 Other specified bacterial agents as the cause of diseases classified elsewhere; Z79.84 Long term (current) use of oral hypoglycemic drugs; E11.9 Type 2 diabetes mellitus without complications; I10 Essential (primary) hypertension; Z79.899 Other long term (current) drug therapy; D64.9 Anemia, unspecified; E78.00 Pure hypercholesterolemia, unspecified; E88.09 Other disorders of plasma-protein metabolism, not elsewhere classified; F17.210 Nicotine dependence, cigarettes, uncomplicated; Z81.8 Family history of other mental and behavioral disorders; R41.9 Unspecified symptoms and signs involving cognitive functions and awareness; Z73.6 Limitation of activities due to disability
CPT/HCPCS: 36415; 70450-TC; 80048-TC; 80061-TC; 80076-TC; 81001; 82565-TC; 82962-TC; 83735-TC; 84100-TC; 85025-TC; 87081-TC; 87086-TC; 97116-TC; C9803; G0480; J0360; J0696; J1630; J1815; J2060; Q0162

== ENCOUNTER 2023-07-21 22:38 | Inpatient (IN) | payer MEDICARE, OTHER ==
[~2023-07-21] VITALS: Ht 142.2 cm; Wt 61.2 kg
[~2023-07-21 22:38] MED LIST: ACET-868 PO; AMLO-213 PO; ATOR40TA PO; BISA10SU11 RC; CYCL30DR EACHEYE; DOCU-141 PO; MAGN400O6 PO; METF-440 PO; NA P133E RC; OLME1TAB92 PO; OMEP20CA15 PO; PIOG15TA8 PO; PREG50CA PO; QUET25TA PO; SERT50TA PO; TAMS-12 PO
[2023-07-21 23:01] VITALS: O2SAT 98
[2023-07-21 23:42] LABS: BASOPHILS % (AUTO) 0.5 % (0.0-2.0); EOSINOPHILS # (AUTO) 0.3 K/uL (0.0-0.7); EOSINOPHILS % (AUTO) 3.8 % (0.0-6.0); HEMATOCRIT 33 % (33-45); HEMOGLOBIN 11.1 g/dL (11.5-14.8); LYMPHOCYTES # (AUTO) 1.9 K/uL (0.8-4.8); LYMPHOCYTES % (AUTO) 26.5 % (20.0-44.0); MEAN CORPUSCULAR HEMOGLOBIN 30 PG (26.0-33.0); MEAN CORPUSCULAR HGB CONC 33 g/dl (31.0-36.0); MEAN CORPUSCULAR VOLUME 89 fL (82-100); MONOCYTES # (AUTO) 0.8 K/uL (0.1-1.30); MONOCYTES % (AUTO) 10.8 % (2.0-12.0); NEUTROPHILS # (AUTO) 4.2 K/uL (1.8-8.9); NEUTROPHILS % (AUTO) 58.4 % (43.0-81.0); PLATELET COUNT (AUTO) 259 K/uL (150-450); RED BLOOD CELL COUNT(AUTO) 3.76 MIL/uL (4.0-5.2); RED CELL DISTRIBUTION WIDTH 16.6 % (11.5-15.0); WHITE BLOOD COUNT (AUTO) 7.2 K/uL (4.3-11.0)
[2023-07-21 23:58] LABS: CALCIUM, SERUM 9.2 mg/dL (8.5-10.1); CARBON DIOXIDE 29 mmol/L (21-32); CHLORIDE 100 mmol/L (98-107); CREATININE 0.7 mg/dL (0.6-1.3); GLUCOSE 84 mg/dL (74-106); POTASSIUM 3.9 mmol/L (3.5-5.1); SODIUM SERUM 137 mmol/L (136-145); UREA NITROGEN, BLOOD 20 mg/dL (7-18)
[2023-07-22 00:08] LABS: ACETAMINOPHEN <10 ug/ml (10-30); ALANINE AMINOTRANSFERASE 13 U/L (12-78); ALCOHOL, BLOOD < 3 mg/dL (0-10); ALKALINE PHOSPHATASE 55 U/L (46-116); ASPARTATE AMINOTRANSFERASE 13 U/L (15-37); BILIRUBIN,DIRECT 0.1 mg/dL (0.0-0.2); BILIRUBIN,TOTAL 0.3 mg/dL (0.2-1.0); TOTAL PROTEIN, SERUM 6.3 g/dL (6.4-8.2)
[2023-07-22 00:14] LABS: ADD URINE CULTURE YES; APPEARANCE,URINE TURBID (CLEAR); BACTERIA,URINE Many /HPF (None Seen); BILIRUBIN,URINE NEGATIVE (NEGATIVE); BLOOD, URINE NEGATIVE Ery/uL (NEGATIVE); COLOR,URINE DARK YELLOW (YELLOW); KETONES,URINE NEGATIVE (NEGATIVE); LEUKOCYTE ESTERASE ,URINE NEGATIVE (NEGATIVE); NITRITE, URINE POSITIVE (NEGATIVE); PROTEIN,URINE NEGATIVE (NEGATIVE); SQUAMOUS EPITHELIAL CELL,UR Rare /HPF (None Seen); UGLUCOSE NEGATIVE (NEGATIVE)
[2023-07-22 00:33] LABS: AMPHETAMINE, URINE NEGATIVE (NEGATIVE); BARBITURATE, URINE NEGATIVE (NEGATIVE); BENZODIAZEPINE, URINE NEGATIVE (NEGATIVE); CANNABINOID, URINE NEGATIVE (NEGATIVE); COCCAINE, URINE NEGATIVE (NEGATIVE); OPIATE, URINE NEGATIVE (NEGATIVE); PHENCYCLIDINE SCREEN,URINE NEGATIVE (NEGATIVE)
[2023-07-22] MEDS ORDERED: NITROFURANTOIN/MONOHYDRATE MACROCRYSTALS 100 MG CAPSULE ONE (02:14)
[2023-07-22] MEDS: NITROFURANTOIN/MONOHYDRATE MACROCRYSTALS 100 MG CAPSULE PO SCH ×2 (02:16→08:29)
[2023-07-22] MEDS ORDERED: MAG HYDROX/AL HYDROX/SIMETH 30 ML UDC PO PRN (03:30)
[2023-07-22] MEDS ORDERED: MAGNESIUM HYDROXIDE 30 ML UDC PO PRN (03:30)
[2023-07-22] MEDS: BLOOD SUGAR DIAGNOSTIC 1 EACH STRIP IN ONE (03:33)
[2023-07-22] MEDS ORDERED: CARB-273 EACHEYE (04:11)
[2023-07-22] MEDS ORDERED: DIVA125C2 PO ×2 (04:13→04:14)
[2023-07-22] MEDS ORDERED: HYDR25TA4 PO (04:15)
[2023-07-22] MEDS ORDERED: LOSA50TA39 PO (04:16)
[2023-07-22] MEDS ORDERED: MECL-159 PO (04:17)
[2023-07-22 05:31] VITALS: BP 165/51; TEMP 98.2; O2SAT 95
[2023-07-22 08:00] VITALS: BP 155/60; TEMP 97.6; O2SAT 98
[2023-07-22] MEDS ORDERED: CRAN425C6 PO (08:16)
[2023-07-22] MEDS ORDERED: CHOL100043 PO (08:16)
[2023-07-22 16:00] VITALS: BP 124/58; TEMP 97.5; O2SAT 94
[2023-07-22] MEDS: DIVALPROEX SODIUM 125 MG CAP.SPRINK PO SCH (17:40)
[2023-07-22 20:00] VITALS: BP 138/64; TEMP 97.8; O2SAT 99
[2023-07-22] MEDS: LORAZEPAM 0.5 MG TABLET PO PRN (20:16)
[2023-07-22] MEDS: ATORVASTATIN 40 MG TABLET PO SCH (21:49)
[2023-07-22] MEDS: HYDROCHLOROTHIAZIDE 25 MG TABLET PO SCH (21:49)
[2023-07-22] MEDS: LOSARTAN POTASSIUM 50 MG TABLET PO SCH (21:49)
[2023-07-22] MEDS: OLANZAPINE 2.5 MG TABLET PO SCH (21:49)
[2023-07-23 07:50] LABS: BASOPHILS % (AUTO) 0.5 % (0.0-2.0); EOSINOPHILS # (AUTO) 0.3 K/uL (0.0-0.7); EOSINOPHILS % (AUTO) 3.3 % (0.0-6.0); HEMATOCRIT 37 % (33-45); HEMOGLOBIN 12.2 g/dL (11.5-14.8); LYMPHOCYTES # (AUTO) 1.9 K/uL (0.8-4.8); LYMPHOCYTES % (AUTO) 22.6 % (20.0-44.0); MEAN CORPUSCULAR HEMOGLOBIN 29 PG (26.0-33.0); MEAN CORPUSCULAR HGB CONC 33 g/dl (31.0-36.0); MEAN CORPUSCULAR VOLUME 89 fL (82-100); MONOCYTES # (AUTO) 0.9 K/uL (0.1-1.30); MONOCYTES % (AUTO) 10.3 % (2.0-12.0); NEUTROPHILS # (AUTO) 5.4 K/uL (1.8-8.9); NEUTROPHILS % (AUTO) 63.3 % (43.0-81.0); PLATELET COUNT (AUTO) 290 K/uL (150-450); RED BLOOD CELL COUNT(AUTO) 4.17 MIL/uL (4.0-5.2); RED CELL DISTRIBUTION WIDTH 16.3 % (11.5-15.0); WHITE BLOOD COUNT (AUTO) 8.5 K/uL (4.3-11.0)
[2023-07-23 08:00] VITALS: BP 156/88; TEMP 97.6; O2SAT 94
[2023-07-23 08:13] LABS: CALCIUM, SERUM 9.2 mg/dL (8.5-10.1); CARBON DIOXIDE 26 mmol/L (21-32); CHLORIDE 96 mmol/L (98-107); CHOLESTEROL 154 mg/dL (<200); CREATININE 0.6 mg/dL (0.6-1.3); GLUCOSE 96 mg/dL (74-106); HDL CHOLESTEROL 49 mg/dL (40-60); LDL 85 mg/dL (0-99); POTASSIUM 3.7 mmol/L (3.5-5.1); SODIUM SERUM 132 mmol/L (136-145); TRIGLYCERIDES 80 mg/dL (30-150); UREA NITROGEN, BLOOD 14 mg/dL (7-18)
[2023-07-23] MEDS: METFORMIN 500 MG TABLET PO SCH (08:39)
[2023-07-23] MEDS: TAMSULOSIN 0.4 MG CAP.SR.24H PO SCH (08:39)
[2023-07-23] MEDS: DOCUSATE SODIUM 100 MG CAPSULE PO SCH (08:39)
[2023-07-23] MEDS: PIOGLITAZONE HCL 15 MG TABLET PO SCH (08:40)
[2023-07-23] MEDS: AMLODIPINE BESYLATE 10 MG TABLET PO SCH (08:40)
[2023-07-23 16:00] VITALS: BP 110/64; TEMP 97.9; O2SAT 95
[2023-07-23 20:53] VITALS: BP 140/60; TEMP 98.2; O2SAT 94
[2023-07-24 08:00] VITALS: BP 138/61; TEMP 97.8; O2SAT 94
[2023-07-24 16:00] VITALS: BP 101/59; TEMP 97.7; O2SAT 94
[2023-07-24 21:15] VITALS: BP 111/59; TEMP 97.9; O2SAT 94
[2023-07-25 08:00] VITALS: BP_SYST 102; BP_SYST 118; BP_DIAS 54; BP_DIAS 70; TEMP 97.8; TEMP 97.9; O2SAT 97
[2023-07-25 21:09] VITALS: BP 106/60; TEMP 97.8; O2SAT 97
[2023-07-25] MEDS: TEMAZEPAM 7.5 MG CAPSULE PO PRN (21:26)
[2023-07-26 08:00] VITALS: BP 132/64; TEMP 97.9; O2SAT 96
[2023-07-26 16:12] VITALS: BP 97/53; TEMP 97.7; O2SAT 93
[2023-07-26 21:14] VITALS: BP 136/71; TEMP 98.7; O2SAT 93
[2023-07-27 08:00] VITALS: BP 140/76; TEMP 98; O2SAT 93
[2023-07-27 16:00] VITALS: BP 105/68; TEMP 97.9; O2SAT 97
[2023-07-27 20:00] VITALS: BP 146/67; TEMP 98.3; O2SAT 96
[2023-07-28 07:26] LABS: BASOPHILS # (AUTO) 0.1 K/uL (0.0-0.2); BASOPHILS % (AUTO) 0.9 % (0.0-2.0); EOSINOPHILS # (AUTO) 0.5 K/uL (0.0-0.7); EOSINOPHILS % (AUTO) 8.4 % (0.0-6.0); HEMATOCRIT 33 % (33-45); HEMOGLOBIN 10.9 g/dL (11.5-14.8); LYMPHOCYTES # (AUTO) 2.1 K/uL (0.8-4.8); LYMPHOCYTES % (AUTO) 33.5 % (20.0-44.0); MEAN CORPUSCULAR HEMOGLOBIN 30 PG (26.0-33.0); MEAN CORPUSCULAR HGB CONC 33 g/dl (31.0-36.0); MEAN CORPUSCULAR VOLUME 89 fL (82-100); MONOCYTES # (AUTO) 0.8 K/uL (0.1-1.30); MONOCYTES % (AUTO) 13.1 % (2.0-12.0); NEUTROPHILS # (AUTO) 2.8 K/uL (1.8-8.9); NEUTROPHILS % (AUTO) 44.1 % (43.0-81.0); PLATELET COUNT (AUTO) 221 K/uL (150-450); RED BLOOD CELL COUNT(AUTO) 3.71 MIL/uL (4.0-5.2); RED CELL DISTRIBUTION WIDTH 16.5 % (11.5-15.0); WHITE BLOOD COUNT (AUTO) 6.3 K/uL (4.3-11.0)
[2023-07-28 08:00] VITALS: BP 131/64; TEMP 97.6; O2SAT 94
[2023-07-28 08:00] LABS: ALBUMIN 2.8 g/dL (3.4-5.0); BILIRUBIN,TOTAL 0.4 mg/dL (0.2-1.0); CALCIUM, SERUM 8.9 mg/dL (8.5-10.1); CREATININE 0.9 mg/dL (0.6-1.3); POTASSIUM 3.4 mmol/L (3.5-5.1); TOTAL PROTEIN, SERUM 5.9 g/dL (6.4-8.2)
[2023-07-28] MEDS: POTASSIUM CHLORIDE 20 MEQ POWDER PACKET PO ONE (09:11)
[2023-07-28 16:00] VITALS: BP 100/71; TEMP 98.1; O2SAT 95
[2023-07-28 20:00] VITALS: BP 116/76; TEMP 97.8; O2SAT 96
[2023-07-29 08:00] VITALS: BP 138/83; TEMP 97.4; O2SAT 95
[2023-07-29 16:00] VITALS: BP 131/86; TEMP 97.6; O2SAT 99
[2023-07-29 20:00] VITALS: BP 131/81; TEMP 98.2; O2SAT 96
[2023-07-29] MEDS: DIVALPROEX SODIUM 125 MG CAP.SPRINK PO SCH (22:11)
[2023-07-30 08:00] VITALS: BP 120/53; TEMP 97.5; O2SAT 95
[2023-07-30 16:00] VITALS: BP 140/59; TEMP 98.7; O2SAT 95
[2023-07-30 21:26] VITALS: BP_SYST 130; BP_DIAS 59; BP_DIAS 62; TEMP 98.2; O2SAT 95
[2023-07-31 08:00] VITALS: BP 113/65; TEMP 98.2; O2SAT 95
[2023-07-31 16:00] VITALS: BP 151/63; TEMP 97.9; O2SAT 96
[2023-07-31 20:29] VITALS: BP 137/92; TEMP 97.9; O2SAT 96
[2023-08-01] MEDS: ACETAMINOPHEN 325 MG TABLET PO PRN (03:45)
[2023-08-01 08:00] VITALS: BP 146/63; TEMP 97.9; O2SAT 93
[2023-08-01 08:25] LABS: ALANINE AMINOTRANSFERASE 11 U/L (12-78); ALBUMIN 2.7 g/dL (3.4-5.0); ALKALINE PHOSPHATASE 49 U/L (46-116); ASPARTATE AMINOTRANSFERASE 15 U/L (15-37); BILIRUBIN,TOTAL 0.3 mg/dL (0.2-1.0); CALCIUM, SERUM 8.6 mg/dL (8.5-10.1); CHLORIDE 101 mmol/L (98-107); CREATININE 0.8 mg/dL (0.6-1.3); GLUCOSE 71 mg/dL (74-106); POTASSIUM 3.9 mmol/L (3.5-5.1); SODIUM SERUM 136 mmol/L (136-145); TOTAL PROTEIN, SERUM 5.7 g/dL (6.4-8.2); UREA NITROGEN, BLOOD 26 mg/dL (7-18)
[2023-08-01 08:30] LABS: CARBON DIOXIDE 26 mmol/L (21-32)
[2023-08-01 08:46] VITALS: BP 145/71
[2023-08-01 13:16] LABS: VALPROIC ACID 78 ug/mL (50-100)
== END 2023-08-01 13:25 | DRG 885 ==
LOC: ER 22:59 → GPS 07-22 00:44
PROVIDERS: ADMIT Psychiatry & Neurology Psychosomatic Medicine; ATTEND Nurse Practitioner Acute Care
DX: F29 Unspecified psychosis not due to a substance or known physiological condition (principal); F03.92 Unspecified dementia, unspecified severity, with psychotic disturbance; F03.93 Unspecified dementia, unspecified severity, with mood disturbance; N39.0 Urinary tract infection, site not specified; E78.5 Hyperlipidemia, unspecified; I10 Essential (primary) hypertension; F20.9 Schizophrenia, unspecified; F32.A Depression, unspecified; Z79.84 Long term (current) use of oral hypoglycemic drugs; Z20.822 Contact with and (suspected) exposure to COVID-19; F39 Unspecified mood [affective] disorder; B96.20 Unspecified Escherichia coli [E. coli] as the cause of diseases classified elsewhere; E11.40 Type 2 diabetes mellitus with diabetic neuropathy, unspecified; Z79.899 Other long term (current) drug therapy
CPT/HCPCS: 36415; 80048-TC; 80053-TC; 80061-TC; 80076-TC; 80164-TC; 81001; 82962-TC; 85025-TC; 87081-TC; 87086-TC; 97112-TC; 97116-TC; 97530-TC; G0480